=== PATIENT | female | born 1930 | race African-American/Black ===

== ENCOUNTER 2018-09-14 14:09 | Inpatient (IN) | payer OTHER ==
[~2018-09-14] VITALS: Ht 157.5 cm; Wt 91.2 kg
[~2018-09-14 14:09] MED LIST: ALLOPURINOL 10100 M1 PO; APAP500 PO; CLORAZEPATE D3.75 M1 PO; COUMADIN 4 MG TA4 M1 PO; HYDROCODONE-AP1 EAC6 PO; LISINOPRIL10 MG PO; LOPRESSOR50 PO; METFORMIN HCL500 MG PO; NIFEDIPINE ER90 M1 PO; PACERONE 200 M200 M1 PO; POTASSIUM20 PO; PRAVACHOL40 MG PO; ULTRAM 50MG TAB50 MG PO; VITAMIN D 5050000 I1 PO
[2018-09-14 14:18] VITALS: BP 150/86
[2018-09-14 15:11] LABS: ABSOLUTE NEUTROPHILS 4.5 thou/uL (1.4-8.2); BASOPHILS 0.6 % (0.0-2.0); EOSINOPHILS 0.8 % (0.0-3.0); HEMOGLOBIN 12.8 gm/dL (12.0-15.0); LYMPHOCYTES 26.6 % (24.0-44.0); MCH 31.6 pg (26.0-34.0); MCHC 32.8 g/dL (28.0-37.0); MCV 96.5 fL (80.0-100.0); MONOCYTES 7.3 % (1.0-8.0); PLATELET COUNT 355 thou/uL (150-400); POLYS 64.7 % (36.0-66.0); RBC 4.04 mil/uL (4.20-5.00); RDW 15.1 % (10.5-14.5)
[2018-09-14 15:15] LABS: CALCIUM 9.5 mg/dL (8.5-10.1); CREATININE 1.4 mg/dL (0.6-1.0); POTASSIUM 4.4 mmol/L (3.5-5.1)
[2018-09-14 15:25] LABS: ALBUMIN 3.3 g/dL (3.4-5.0); TOTAL BILIRUBIN 0.5 mg/dL (<0.1-1.0); TOTAL PROTEIN 6.9 g/dL (6.4-8.2)
[2018-09-14 15:26] LABS: TROPONIN-I 3.22 ng/mL (<0.06)
[2018-09-14 15:28] LABS: INR 2.8; PROTIME 28.8 Seconds (9.3-11.4)
[2018-09-14 17:46] LABS: CHOLESTEROL 164 mg/dL (<200); HDL CHOLESTEROL 77 mg/dL (>40); LDL CHOLESTEROL 61 mg/dL (<100); TC:HDL 2.1 Ratio (Not establshd); TRIGLYCERIDE 134 mg/dL (<150); VLDL 27 mg/dL (<40)
[2018-09-14 17:58] VITALS: BP 147/90
[2018-09-14 18:00] VITALS: BP 155/91
[2018-09-14 18:01] LABS: HEMATOCRIT 38.9 % (37.0-47.0); HEMOGLOBIN 12.7 gm/dL (12.0-15.0); MCH 31.3 pg (26.0-34.0); MCHC 32.6 g/dL (28.0-37.0); MCV 95.9 fL (80.0-100.0); RBC 4.05 mil/uL (4.20-5.00); RDW 15.4 % (10.5-14.5); WBC 7.9 thou/uL (4.0-11.0)
[2018-09-14 18:45] VITALS: BP 133/68
[2018-09-14] MEDS ORDERED: LASIX 20 MG TAB20 MG PO (23:22)
[2018-09-15 00:22] VITALS: BP 136/84
[2018-09-15 03:29] LABS: HEMATOCRIT 37.1 % (37.0-47.0); HEMOGLOBIN 11.9 gm/dL (12.0-15.0); MCH 30.6 pg (26.0-34.0); MCV 95.7 fL (80.0-100.0); RBC 3.88 mil/uL (4.20-5.00); RDW 14.8 % (10.5-14.5); WBC 8.4 thou/uL (4.0-11.0)
[2018-09-15 03:44] LABS: CREATININE 1.6 mg/dL (0.6-1.0); POTASSIUM 4.3 mmol/L (3.5-5.1)
[2018-09-15 03:48] LABS: INR 2.2; PROTIME 22.7 Seconds (9.3-11.4)
[2018-09-15 03:53] LABS: APTT 123.5 Seconds (24.5-32.8)
[2018-09-15 03:54] LABS: TROPONIN-I 3.11 ng/mL (<0.06)
--- NOTE | 2018-09-15 05:09 | NUR ---
PT ADMITTED A T CHANGE OF SHIFT 09/14/18 1900. ALERT AND ORIENTED. ON HEPARIN DRIP WITHOUT ACTIVE CHEST PAIN. ELEVATED TROPONIN. VITALS STABLE. FIRST APTT WAS CRITICAL GREATER 198.4. HELD HEPARIN FOR 1 HOUR , REDUCED RATE BY 2.7ML/HR AND RECHECK APTT 6HRS LATER. 0350, NEW APTT 123.5. APTT HELD FOR 1 HOUR AND RATE REDUCED BY 2.7 ML/HR. CURRENT HEPARIN RATE 5.37 ML/HR. PT WAS C/O NAUSEA EARLIER DURING THE SHIFT. ALLEVIATED BY ZOFRAN IV. AT 0138 Pt WAS HELPED TO BEDSIDE COMMODE AND WAS SOB AND ONSET OF CHEST PAIN, OVER LEFT SIDE, UNDER THE BREAST RATED AT 10/10.BREAD ROOM HAND NOTIFIED. NITRO X 1 SUBLINGUAL AND MORPHINE GIVEN. PAIN ALLEVIATED. PATIENT CURRENTLY WITHOUT PAIN. Pt HAS BEEN NPO SINCE 0000 FOR PENDING CARDIAC CATH. CONSENT FOR OBTAINED. WILL CONTINUE TO FOLLOW POC.
[2018-09-15 05:25] VITALS: BP 113/60
[2018-09-15 08:39] VITALS: BP 120/72
--- NOTE | 2018-09-15 09:22 | 2DMMODE ---
[place] [address] [employer] [place] [address] 2 D/M-MODE ECHOCARDIOGRAM Name: LENY BLANCO Room #: 211-P [facility] IN ..#: [id number] ������������� Admission: 09/14/18 ������������� Attend Phys: Brooke Hall MD Discharge: ��� ������������� ��� Date of : 32 Date of Service: 09/15/18 0922 �� Report #: [id number] �������� ��������������������������������������������[id number] THIS REPORT FOR: //name// APPROVED REPORT Study performed: 09/15/2018 08:26:25 EXAM: Comprehensive 2D, Doppler, and color-flow Echocardiogram Patient Location: Bedside Room #: 211 Status: routine BSA: 1.90 HR: 110 bpm BP: 120/72 mmHg Rhythm: Atrial Fibrillation Indications Elevated troponin, NSTEMI, short of breath, chest pain. Hx: Afib, CHF, DM, HTN, HLP. Echo Enhancing Agent Indication: Rule out thrombus Agent(s) / Amount(s) Used: Optison 9 cc 2D Dimensions RVDd: 35.58 mm IVSd: 11.28 (7-11mm) LVOT Diam: 19.84 (18-24mm) LVDd: 39.02 mm PWd: 10.56 (7-11mm) Ascending Ao: 29.17 (22-36mm) LVDs: 29.54 (25-40mm) Aortic Root: 31.21 mm Volumes Left Atrial Volume (Systole) Single Plane 4CH: 66.10 mL Single Plane 2CH: 82.66 mL LA ESV Index: 44.00 mL/m2 Aortic Valve AoV Peak Chester.: 1.07 m/s AO Peak Gr.: 4.56 mmHg LVOT Max P.44 mmHg LVOT Max V: 1.17 m/s ARYAN Vmax: 3.37 cm2 Mitral Valve MV Decel. Time: 112.93 ms [facility] [place] [address] 2 D/M-MODE ECHOCARDIOGRAM Name: LENY BLANCO Room #: 211-P [facility] IN M.R.#: [id number] ������������� Admission: 09/14/18 ������������� Attend Phys: Brooke Hall MD Discharge: ��� ������������� ��� Date of : 31 Date of Service: 09/15/18 0922 �� Report #: [id number] �������� ��������������������������������������������[id number] MV E Max Chester.: 0.88 m/s Pulmonary Valve PV Peak Chester.: 0.77 m/s PV Peak Gr.: 2.36 mmHg Tricuspid Valve TR Peak Chester.: 3.55 m/s RAP Estimate: 10.00 mmHg TR Peak Gr.: 50.28 mmHg PA Pressure: 60.00 mmHg Left Ventricle The left ventricle is normal size. Moderate basal septal hypertrophy is present. Left ventricular systolic function is severely decreased. LVEF is 25%. Akinesis of septum, anterolateral wall and apex. This study is not technically sufficient to allow evaluation of the LV diastolic function. Right Ventricle The right ventricle is normal size. Right ventricle is hypokinetic. Atria Left atrium is moderately dilated. The atrial septum is aneurysmal. The right atrium size is normal. Aortic Valve The aortic valve is mildly sclerotic. Trace aortic regurgitation. There is no aortic valvular stenosis. Mitral Valve The mitral valve is normal in structure. Mild mitral regurgitation. No evidence of mitral valve stenosis. Tricuspid Valve The tricuspid valve is normal in structure. Moderate tricuspid regurgitation. Estimated PAP is 60mmHg. Pulmonic Valve The pulmonary valve is normal in structure. Trace pulmonic regurgitation. Great Vessels The aortic root is normal in size. The ascending aorta is normal in size. IVC is normal in size and collapses <50% with inspiration. [facility] [address] [place] [address] 2 D/M-MODE ECHOCARDIOGRAM Name: LENY BLANCO Room #: 211-P [facility] IN .R.#: [id number] ������������� Admission: 09/14/18 ������������� Attend Phys: Brooke Hall MD Discharge: ��� ������������� ��� Date of : 31 Date of Service: 09/15/18 0922 �� Report #: [id number] �������� ��������������������������������������������[id number] Pericardium There is no pericardial effusion. <Conclusion> Left ventricular systolic function is severely decreased. LVEF is 25%. Akinesis of septum, anterolateral wall and apex. Left atrium is moderately dilated. The aortic valve is mildly sclerotic. Trace aortic regurgitation, no stenosis. The mitral valve is normal in structure. Mild mitral regurgitation. Moderate tricuspid regurgitation. Estimated pulmonary artery pressure of 60mmHg. There is no pericardial effusion. ��������������������������������������������� <ELECTRONICALLY SIGNED> ���������������������������������������� By: Bhavin Browning MD, [facility] ��������������������������������������������� 09/15/18921 1 1 Bhavin Browning MD, [facility] /INF
[2018-09-15 12:46] LABS: INR 1.7
[2018-09-15 13:19] VITALS: BP 143/78
--- NOTE | 2018-09-15 16:02 | EKG ---
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: W[place] : 1930 Requested By: Tesfaye Allen Order Number: [id number] MD: Bhavin Browning Measurements Intervals [place] Rate: 79 P: 43 HI: 263 QRS: -1 QRSD: 150 T: 148 QT: 462 QTc: 530 Interpretive Statements Sinus rhythm Prolonged HI interval Left bundle branch block Compared to ECG 01/16/2015 21:19:28 No significant changes Electronically Signed On 09-15-2018 16:02:40 CDT by Bhavin Browning [email or web address] ��������������������������������������������� <ELECTRONICALLY SIGNED> ���������������������������������������� By: Bhavin Browning MD, [facility] ��������������������������������������������� 09/15/18 1602 1434 1434 Bhavin Browning MD, [facility] /EPI
--- NOTE | 2018-09-15 16:19 | CATHLAB ---
[facility] [place] [address] INVASIVE PROCEDURE REPORT Name: BELLALENY B Room #: 211-P [facility] IN [facility]#: [id number] ������������� Admission: 09/14/18 ������������� Attend Phys: Brooke Hall MD Discharge: ��� ������������� ��� Date of : 31 Date of Service: 09/15/18 1619 �� Report #: [id number] �������� ��������������������������������������������[id number] THIS REPORT FOR: //name// APPROVED REPORT Study performed: 09/15/2018 13:51:01 Patient Details The patient is a 88 year-old female Event Personnel Tj Esparza Account [employer], Mary Ramos RN RN, Jasmina Lopez RN RN, Haleigh Moore, Monica Dale Monitor Procedures Performed Left Heart Cath w/or w/o Coronaries [id number] [facility] Indication Dyspnea, Cardiomyopathy, Chest pain Risk Factors Hypercholesterolemia, Coronary Artery DiseaseHypertension Procedure Narrative The Right Wrist^ was infiltrated with 1% Lidocaine subcutaneous anesthesia. A TRANSRADIAL SLENDER 6F GLIDESHEATH KIT #[id number] sheath was inserted into the Right Radial Artery^. Coronary angiography was performed using coronary diagnostic catheters. The right coronary system was accessed and visualized with a 5FR JR 4 #[id number] catheter. The left coronary system was accessed and visualized with a 5FR JL 3.5 #[id number] catheter. The left ventricle was accessed and visualized with a 5FR PIG 145 ANGLED #[id number] catheter. Hemostasis was obtained with manual pressure following sheath removal without any complications. The patient tolerated the procedure well and there were no complications associated with the procedure. There was no hematoma. Intraoperative Conscious Sedation Sedation start time: 1411 Case end Time: 1430 Fluoro Time: 3.10 minutes Dose: DAP 5269.00 cGycm2 602 mGy Contrast Type and Amount: Visipaque 50 ml [facility] [place] [address] INVASIVE PROCEDURE REPORT Name: LENY BLANCO Room #: 211-P [facility] IN .R.#: [id number] ������������� Admission: 09/14/18 ������������� Attend Phys: Brooke Hall MD Discharge: ��� ������������� ��� Date of : 31 Date of Service: 09/15/18 1619 �� Report #: [id number] �������� ��������������������������������������������[id number] Coronary Angiography The patient's coronary anatomy is right dominant. Diagnostic Cath Left Main This is a large caliber vessel, patent with no flow-limiting lesions. LAD This is a moderate size caliber vessel, traversing the anterior wall and terminating at the apex. There is mild stenosis in the proximal segment, 20%. Diagonal 1 There is a small-caliber vessel, patent with no flow-limiting lesions. Diagonal 2 This is a moderate size caliber vessel, originating from the mid segment of the LAD. This vessel travels down the anterolateral wall and wraps around the apex. This vessel is patent with no flow-limiting lesions. Circumflex This is a moderate size caliber vessel, supplying multiple OM vessels. This vessel is tortuous in its course, patent with no flow-limiting lesions. OM1 There is mild disease in the proximal segment, 20%. OM2 This is a moderate size caliber vessel, patent with no flow-limiting lesions. OM3 This is a patent vessel, with no flow-limiting lesions. Right Coronary This is a dominant vessel, with mild disease in the proximal segment, 10%. R PDA This is a patent vessel, with no flow-limiting lesions. RPLV This is a patent vessel, with no flow-limiting lesions. Left Ventriculography Left Ventriculography was not performed. Ejection Fraction was 25-30% based off patient's Echocardiogram. An LVEDP was measured and there is no gradient across the outflow tract. Hemodynamics The aortic pressure is 134/89 mmHg with a mean of 109 mmHg. The left ventricular pressure is 144/29 mmHg with a mean of mmHg. The left ventricular end diastolic pressure is 32 mmHg. Conclusion 1. Mild, nonobstructive coronary artery disease. 2. 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 3. Recommend guideline directed medical therapy. ��������������������������������������������� <ELECTRONICALLY SIGNED> ���������������������������������������� By: Tj Esparza MD ��������������������������������������������� 09/15/181618 18 18 Tj Esparza MD /INF
--- NOTE | 2018-09-15 16:50 | NUR ---
ASSESSMENT CHARTED - MEDS PER JUN - GIVEN VIT K SUB Q THIS AM - ORDERED TO LOWER INR. SAT CHECKED WITH PATIENT ASLEEP ON - WAS IN THE LOW 80'S. PLACED ON AT 2 L NC - IS NOW AT 3. 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 PT GIVEN SANDWICH WHEN SHE RETRUNED FROM CATH - STATED SHE WAS HUNGRY - TOOK A FEW BITES AND THEN SAID SHE WS NOT AND WANTED ZOFRAN. VSS POST CATH - NO CO'S OF PAIN, RESTING AT THE PRESENT TIME.
[2018-09-15 20:00] VITALS: BP 124/64
--- NOTE | 2018-09-16 04:58 | NUR ---
Pt had a cardiac cath, without intervention yesterday. Pt was lethargic and confused at the beginning of the shift but later was awake was oriented x 4. voids per bedside commode . vital signs stable and assessments as documented. will keep monitoring lethergyand following POC.
[2018-09-16 05:00] VITALS: BP 118/61
[2018-09-16 05:08] LABS: HEMATOCRIT 37.2 % (37.0-47.0); HEMOGLOBIN 11.9 gm/dL (12.0-15.0); MCH 31.1 pg (26.0-34.0); MCHC 31.9 g/dL (28.0-37.0); MCV 97.6 fL (80.0-100.0); RBC 3.81 mil/uL (4.20-5.00); RDW 15.3 % (10.5-14.5); WBC 10.9 thou/uL (4.0-11.0)
[2018-09-16 05:19] LABS: INR 1.3; PROTIME 13.4 Seconds (9.3-11.4)
[2018-09-16 05:36] LABS: CALCIUM 9.1 mg/dL (8.5-10.1); CREATININE 2.2 mg/dL (0.6-1.0); POTASSIUM 4.2 mmol/L (3.5-5.1)
[2018-09-16 05:38] LABS: TROPONIN-I 1.75 ng/mL (<0.06)
[2018-09-16 07:24] VITALS: BP 150/88
[2018-09-16 11:32] VITALS: BP 123/62
[2018-09-16 15:32] LABS: URINE BLOOD 2+ (Negative); URINE COLOR YELLOW; URINE GLUCOSE-RANDOM* NEGATIVE (Negative); URINE KETONES NEGATIVE (Negative); URINE LEUKOCYTES NEGATIVE (Negative); URINE NITRITE NEGATIVE (Negative); URINE PROTEIN (DIPSTICK) 1+ (Negative); URINE UROBILINOGEN 0.2 E.U./dl (0.2-1.0)
[2018-09-16 15:35] LABS: ICTOTEST (BILI CONFIRMATORY) Negative (Negative); URINE BILIRUBIN NEGATIVE (Negative)
[2018-09-16 15:36] LABS: URINE CLARITY SL HAZY
[2018-09-16 15:38] LABS: PROT/CREAT RATIO 0.2; URINE CREATININE-RANDOM* 284.4 mg/dL; URINE PROTEIN-RANDOM* 66.8 mg/dL (<11.9)
[2018-09-16 15:42] LABS: SQUAMOUS 4-10 Moderate /LPF (0-3); URINE RBC 0-2 Rare /HPF (0-2); URINE WBC 0-5 Rare /HPF (0-5)
[2018-09-16 15:44] LABS: CASTS None Seen /LPF (None Seen); CRYSTALS None Seen /LPF (None Seen)
[2018-09-16 16:16] VITALS: BP 126/74
--- NOTE | 2018-09-16 17:07 | NUR ---
ASSESSMENTS CHARTED - MEDS PER MAR - LISINOPRIL D/C'S TODAY AND PATIENT STARTED ON AMMIODARONE. IV FLUIDS STARTED ORDERED - CONSULT FOR DR HICKMAN AND PATIENT SEEN - ORDERS NOTED - URINE SENT TO LAB. PT UP TO THE CHAIR THIS AFTERNOON - JASON WELL. NO CO'S OF PAIN OR NAUSEA.JASON OD AMPUNT OF DIET AND FLUIDS. FAMILY AT THE BEDSIDE FOR THE DAY. PT APPEARED A LITTLE CONFUSED THIS AM WHEN FIRST AWOKEN - CLEARED AND SHE HAS BEEN ALERT AND ORIENTED THE REST OF THE DAY. TITRATING O2 OFF AND PATIENT STATED THAT SHE WANTED BACK ON SHE FELT BETTER WITH IT ON AND BREATHING WAS EASIER - LEFT O2 AT 2 LNC. NO CO'S AT THE PRESENT TIME.
[2018-09-16 20:42] VITALS: BP 122/63
[2018-09-17] VITALS (7 sets, daily range): BP systolic 101–142; BP diastolic 45–79
--- NOTE | 2018-09-17 04:41 | NUR ---
Assumed care at 1900. pt alert and oriented. Family at bedside. VSS. Pt denies pain,or nausea . on 2L eof oxygen. Pt received a bed bath. No other complains reported. Turns as needed. ANd denies SOA. Will continue with plan of care.
[2018-09-17 05:26] LABS: PROTIME 10.8 Seconds (9.3-11.4)
[2018-09-17 05:30] LABS: CALCIUM 8.4 mg/dL (8.5-10.1); CREATININE 1.6 mg/dL (0.6-1.0); POTASSIUM 3.9 mmol/L (3.5-5.1)
--- NOTE | 2018-09-17 09:30 | EKG ---
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 : 1930 Requested By: Bhavin Browning Order Number: [id number] MD: Bhavin Browning Measurements Intervals [place] Rate: 98 P: 0 AZ: 209 QRS: 23 QRSD: 134 T: 145 QT: 396 QTc: 506 Interpretive Statements Sinus tachycardia Atrial premature complexes Borderline prolonged [place] interval Left bundle branch block Compared to ECG 09/14/2018 14:34:19 Atrial premature complex(es) now present Electronically Signed On 09-17-2018 9:30:33 CDT by Bhavin Browning [email or web address] ��������������������������������������������� <ELECTRONICALLY SIGNED> ���������������������������������������� By: Bhavin Browning MD, [facility] ��������������������������������������������� 09/17/1830 2 2 Bhavin Browning MD, [facility] /EPI
--- NOTE | 2018-09-17 16:44 | NUR ---
ASSESSMENT CHARTED - MEDS PER JUN - STARTED ON LISINOPRIL THIS AM AND IV ANTIBIOTIC. PT AND OT CONSULTED - PT UP TO THE CHAIR AND TO THE BSC - BETTER URING OUTPUT TODAY - URINE REMAINS DONIS IN COLOR. JASON DIET AND FLUIDS WITH NO CO'S OF NASUEA. NO CO'S OF PAIN. PT WITH MANY VISITIORS TODY - BRIGHT AND CONVERSANT WITH THEM. PT STATES THAT SHE FEELS BETTER TODAY. NO CO'S AT THE PRESENT TIME.
--- NOTE | 2018-09-18 03:19 | NUR ---
ASSESSMENT CHARTED. PT DENIES CP, SOA, N/V, DIZINESS. 2 L NC. X1 ASSIST TO COMMOD TO VOID. FAMILY AT BEDSIDE THROUGHOUT NIGHT. SLEEPING WELL. PLAN FOR LABS THIS AM. WILL CONTINUE TO MONITOR AND WITH POC.
[2018-09-18 03:59] LABS: ALBUMIN 2.2 g/dL (3.4-5.0); CALCIUM 8.3 mg/dL (8.5-10.1); CREATININE 1.7 mg/dL (0.6-1.0); PHOSPHORUS 3.4 mg/dL (2.5-4.9); POTASSIUM 3.9 mmol/L (3.5-5.1)
[2018-09-18 04:00] LABS: PROTIME 10.7 Seconds (9.3-11.4)
[2018-09-18 04:50] VITALS: BP 142/76
--- NOTE | 2018-09-18 07:55 | HC ---
[facility] [place] [address] CONSULTATION Name: LENY BLANCO Delilah Room #: 211-P [facility] IN M.R.#: [id number] Admission: 09/14/18 ������������������ Attend Phys: Brooke Hall MD Discharge: ������������������ Date of : 31 Report #: [id number] THIS REPORT FOR: //name// CC: Kyra Hall DATE OF SERVICE: 09/14/2018 INDICATION: Chest pain. HISTORY OF PRESENT ILLNESS: This is a pleasant 88-year-old female with a past medical history significant for paroxysmal atrial fibrillation, diabetes mellitus, hypertension, mild coronary artery disease, presenting with chest pain. Yesterday, she started to develop a discomfort in the left lower chest area, initiated with exertion. Anytime she walked, she felt chest discomfort, relieved at rest. She felt mildly lightheaded this morning. She denies any fever, nausea or diarrhea. She does have intermittent episodes of dyspnea. Her ambulation is limited by arthritis, normally uses a cane for assistance. She reports no recent falls. She is chronically anticoagulated with warfarin. PAST MEDICAL HISTORY: Mild CAD, paroxysmal atrial fibrillation, maintained in sinus rhythm with amiodarone. Diabetes mellitus, hypertension. Echo from 2018 reveals normal EF with mild to moderate mitral regurgitation. History of SVT. MEDICATIONS: At home include amiodarone 200 mg daily, Lopressor 50 mg, metformin, warfarin as directed, lisinopril 40 mg, nifedipine, Pravachol and Lasix. ALLERGIES: INCLUDE ZOCOR AND OXYCODONE. SOCIAL HISTORY: Negative for tobacco use. FAMILY HISTORY: Negative for premature CAD. REVIEW OF SYSTEMS: A full 10-point review of systems performed. Only the pertinent positives and negatives are described in the HPI. PHYSICAL EXAMINATION: VITAL SIGNS: Blood pressure is 140/90, heart rate is 85 beats per minute. GENERAL APPEARANCE: An elderly appearing female in no acute distress. HEENT: Normocephalic, atraumatic. Oral mucosa moist. NECK: Supple. LUNGS: Clear to auscultation. CARDIAC: Regular rate and rhythm, S1, S2 positive. ABDOMEN: Soft, nontender. EXTREMITIES: No cyanosis, trace edema. [facility] [address] [place] [address] CONSULTATION Name: LENY BLANCO Room #: 211-P [facility] IN .R.#: [id number] Admission: 09/14/18 ������������������ Attend Phys: Brooke Hall MD Discharge: ������������������ Date of : 31 Report #: [id number] ELECTROCARDIOGRAM: Reveals sinus rhythm, left bundle-branch block. LABORATORY VALUES: White count 7.0, hemoglobin is 12.8. INR is 2.8. Creatinine is 1.4. Troponin is 3.22. ASSESSMENT AND PLAN: 1. Non-ST elevation myocardial infarction, pain free at this time. Minimal exertion will elicit her anginal episodes. Given her symptoms and risk factors, I did recommend proceeding with a cardiac catheterization. We discussed the risks and benefits. The patient and her family understand and wish to proceed. We will start the patient on heparin protocol at this time. Start aspirin therapy. 2. Paroxysmal atrial fibrillation, remains in sinus rhythm. Continue with amiodarone. Warfarin will be held. She will be given vitamin K to reverse the INR. 3. Hypertension, continue with medications. 4. Diabetes mellitus, continue with her regimen. 5. Hypercholesterolemia, continue with statin therapy. 6. Edema, hold diuretic therapy at this time. ��������������������������������������������� <ELECTRONICALLY SIGNED> ���������������������������������������� By: Tj Esparza MD ��������������������������������������������� 09/18/18 0755 1643 1227 Tj Esparza MD /nt
[2018-09-18 08:51] VITALS: BP 120/54
--- NOTE | 2018-09-18 10:36 | NUR ---
Met with patient who reports she lives at home with dtr and granddtr. She reports someone with her most of time. All needs on one level. She uses a rolator walker for ambulation. She reports she is open to HH if needed at vt. casemgt following.
[2018-09-18 11:04] VITALS: BP 100/50
--- NOTE | 2018-09-18 11:28 | HC ---
[facility] [place] [address] [place] [address] CONSULTATION Name: LENY BLANCO Delilah Room #: 211-P [facility] IN M.R.#: [id number] Admission: 09/14/18 ������������������ Attend Phys: Brooke Hall MD Discharge: ������������������ Date of : 31 Report #: [id number] THIS REPORT FOR: //name// CC: Kyra Hall DATE OF SERVICE: 09/16/2018 NEPHROLOGY CONSULTATION REASON FOR CONSULTATION: Elevating creatinine. HISTORY OF PRESENT ILLNESS: This 88-year-old patient with chronic atrial fibrillation, decreased heart function, long-standing diabetes and hypertension, presented with left-sided pleuritic pain. Troponin I was mildly elevated and she underwent heart catheterization, which showed no substantial coronary artery disease. She does have a decreased left ventricular ejection fraction of 25%. Creatinine was 1.4 at the time of admission and gradually elevating and now up to 2.2 today. PAST MEDICAL HISTORY: Long-standing diabetes, long-standing hypertension, chronic atrial fibrillation, diabetes and hypertension. HOME MEDICATIONS: Include amiodarone 200 mg per day, metoprolol 50 mg daily, metformin, warfarin, lisinopril 10 mg daily, nifedipine 30 mg daily, Pravachol and every other day furosemide. ALLERGIES: REPORTEDLY TO ZOCOR. FAMILY HISTORY: Negative for renal disease. SOCIAL HISTORY: Remote smoker. REVIEW OF SYSTEMS: GENERAL: She has been feeling reasonably well. EYES: Vision okay. She does have a cataract. ENT: Hearing okay, swallows okay. No mouth sores. ENDOCRINE: Positive for the diabetes. RESPIRATORY: Denies shortness of air or hemoptysis. She did have pleuritic pain at admission. CARDIAC: Denies anginal-type chest pain, lower extremity swelling or palpitations. GASTROINTESTINAL: No nausea, vomiting, diarrhea or bloody stools. GENITOURINARY: No dysuria, hematuria or renal stone disease. NEUROLOGIC: No seizure, syncope or stroke. No evidence of peripheral neuropathy. [facility] [address] [address] CONSULTATION Name: LENY BLANCO Room #: [address] [place] [address] [place] [facility].#: [id number] Admission: 09/14/18 ������������������ Attend Phys: Brooke Hall MD Discharge: ������������������ Date of : 31 Report #: [id number] MUSCULOSKELETAL: Benign. PHYSICAL EXAMINATION: VITAL SIGNS: This is an elderly patient, relatively comfortable. SKIN: Unremarkable. SKELETAL: Well developed, well nourished. No amputations. HEENT: Extraocular movements are full. No scleral icterus. Hearing and vision intact. Mucous membranes moist. Tongue, buccal mucosa benign. NECK: Supple. No carotid bruits. CHEST: Scanty bibasilar crackles. HEART: Irregular. ABDOMEN: Soft and nontender, without bruits, masses or organomegaly. EXTREMITIES: Show no peripheral edema. NEUROLOGIC: Grossly intact. LABORATORY DATA: Hemoglobin 11.9. Sodium 140, potassium 4.2, chloride 105, bicarbonate 23, BUN 42 and creatinine 2.2. ASSESSMENT AND PLAN: 1. Acute kidney injury. She appears to have dye-induced acute kidney injury. Her cardiac performance has fallen really for unclear etiology. She did have a mildly elevated troponin, but no coronary lesions. Appropriately, gentle IV fluids are being given. For completeness, we will check urinalysis, urine proteins, serum protein electrophoresis and renal sonography, but we do not expect really to find much with any of that. 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 2. Decreased left ventricular ejection fraction. 3. Elevated troponin. 4. Long-standing hypertension. 5. Chronic atrial fibrillation. ��������������������������������������������� <ELECTRONICALLY SIGNED> ���������������������������������������� By: Luis Khan MD ��������������������������������������������� 09/18/18 1128 1010 0012 Luis Khan MD /nt
[2018-09-18] MEDS ORDERED: LISINOPRIL2.5 MG PO (12:05)
[2018-09-18] MEDS ORDERED: CEFUROXIME250 MG PO (12:05)
[2018-09-18] MEDS ORDERED: COREG6.25 MG PO (12:05)
[2018-09-18] MEDS ORDERED: COUMADIN 5 MG TA5 M1 PO (12:05)
[2018-09-18] MEDS ORDERED: ASPIR 8181 MG PO (12:05)
[2018-09-18] MEDS ORDERED: SYNTHROID25 MC1 PO (12:05)
[2018-09-18 13:43] VITALS: BP 100/50
--- NOTE | 2018-09-18 13:45 | NUR ---
NOTIFIED [facility] OF REFERRAL AND THEY CAN ACCEPT AT [place]. PT DISCHARGING TODAY TO HOME WITH [facility] HH SPOKE WITH TANNA IN ADM. SHE WILL NOTIFY [facility] SIM OF TIME OF VISITS.
--- NOTE | 2018-09-18 14:04 | NUR ---
discussed with granddtr dc planning. Patient to dc home today with HH care. No preference for HH, [facility] can accept. gave granddtr Div of Aging information to call if patient candidate for HBCS.
--- NOTE | 2018-09-18 18:08 | NUR ---
ASSESSMENT CHARTED, VSS, ALERT AND ORIENTED, PATIENT DISCHARGED TO HOME ACCOMPANIED BY CAREGIVER, GRANDDAUGHTER. DISCHARGE INSTRUCTIONS GIVEN TO PATIENT AND GRANDDAUGHTER, BOTH STATED UNDERSTANDING. RACIEL KAUFFMAN.
[2018-09-19 14:09] LABS: KAPPA/LAMBDA RATIO 17.23 (0.26-1.65); LAMBDA FREE LIGHT CHAINS 17.3 mg/L (5.7-26.3)
[2018-09-20 19:06] LABS: GLOBULIN TOTAL 2.7 g/dL (2.2-3.9); M-SPIKE Not Observed g/dL (Not Observed)
== END 2018-09-18 18:23 | disposition home health service (06) | DRG 280 ==
LOC: ER 14:09 → 2N 16:28 → EROBS 16:28 → 2N 18:25 → ENTRNSPT 09-18 17:12 → 2N 09-18 18:23
PROVIDERS: Emergency Medicine; Internal Medicine; Internal Medicine Nephrology; ADMIT Internal Medicine
DX: I21.4 Non-ST elevation (NSTEMI) myocardial infarction (principal); I50.23 Acute on chronic systolic (congestive) heart failure; N17.9 Acute kidney failure, unspecified; I51.81 Takotsubo syndrome; I13.0 Hypertensive heart and chronic kidney disease with heart failure and stage 1 through stage 4 chronic kidney disease, or unspecified chronic kidney disease; N39.0 Urinary tract infection, site not specified; N18.4 Chronic kidney disease, stage 4 (severe); I48.0 Paroxysmal atrial fibrillation; I25.10 Atherosclerotic heart disease of native coronary artery without angina pectoris; E78.00 Pure hypercholesterolemia, unspecified; E78.5 Hyperlipidemia, unspecified; F41.9 Anxiety disorder, unspecified; I36.1 Nonrheumatic tricuspid (valve) insufficiency; E03.9 Hypothyroidism, unspecified; E11.21 Type 2 diabetes mellitus with diabetic nephropathy; G72.9 Myopathy, unspecified; Z90.710 Acquired absence of both cervix and uterus; Z85.42 Personal history of malignant neoplasm of other parts of uterus; Z90.49 Acquired absence of other specified parts of digestive tract; Z79.899 Other long term (current) drug therapy; Z79.01 Long term (current) use of anticoagulants; Z79.84 Long term (current) use of oral hypoglycemic drugs; Z88.8 Allergy status to other drugs, medicaments and biological substances; Z87.891 Personal history of nicotine dependence
CPT/HCPCS: 10081; 10194

== ENCOUNTER 2018-10-02 23:18 | Inpatient (IN) | payer OTHER ==
[~2018-10-02] VITALS: Ht 157.5 cm; Wt 98.7 kg
[~2018-10-02 23:18] MED LIST changes: +ASPIR 8181 MG PO; +CEFUROXIME250 MG PO; +COREG6.25 MG PO; +COUMADIN 5 MG TA5 M1 PO; +LASIX 20 MG TAB20 MG PO; +LISINOPRIL2.5 MG PO; +SYNTHROID25 MC1 PO
[2018-10-02 23:29] VITALS: BP 143/101
[2018-10-02 23:41] LABS: ABSOLUTE NEUTROPHILS 4.1 thou/uL (1.4-8.2); BASOPHILS 1.2 % (0.0-2.0); EOSINOPHILS 3.3 % (0.0-3.0); HEMATOCRIT 37.9 % (37.0-47.0); HEMOGLOBIN 12.4 gm/dL (12.0-15.0); LYMPHOCYTES 22.6 % (24.0-44.0); MCH 31.4 pg (26.0-34.0); MCHC 32.7 g/dL (28.0-37.0); MCV 95.9 fL (80.0-100.0); MONOCYTES 5.9 % (1.0-8.0); PLATELET COUNT 521 thou/uL (150-400); RBC 3.95 mil/uL (4.20-5.00); RDW 14.9 % (10.5-14.5); WBC 6.2 thou/uL (4.0-11.0)
[2018-10-02 23:50] LABS: CALCIUM 8.9 mg/dL (8.5-10.1); CREATININE 1.5 mg/dL (0.6-1.0); POTASSIUM 4.5 mmol/L (3.5-5.1)
[2018-10-02 23:59] LABS: TROPONIN-I 0.11 ng/mL (<0.06)
[2018-10-03] VITALS (7 sets, daily range): BP systolic 127–167; BP diastolic 59–98
[2018-10-03 00:44] LABS: APTT 35.7 Seconds (24.5-32.8); INR 2.8; PROTIME 28.8 Seconds (9.3-11.4)
[2018-10-03 05:10] LABS: CALCIUM 8.6 mg/dL (8.5-10.1); CREATININE 1.2 mg/dL (0.6-1.0); POTASSIUM 4.4 mmol/L (3.5-5.1)
--- NOTE | 2018-10-03 05:24 | NUR ---
PT WAS AN ER ADMIT AT 0250 WHO CAME INTO THE ER WITH AN IRREGULAR HEAR RHYTHM. FAMILY AT BEDSIDE. PT IS ALERT AND ORIENTED AND DENIES ANY NEED. PT IS PLACED ON AMIODARON DRIP. PT IS SEEN BY NURSE PRACTITIONER. ADMISSION ASSESSMENT AND EDUCATION COMPLETED. NO SIGN OF DISTRESS NOTED. VITAL SIGNS STABLE. DENIES ANY FURTHER NEEDS AT THIS TIME.
[2018-10-03 09:09] LABS: CREATININE 1.4 mg/dL (0.6-1.0); POTASSIUM 4.4 mmol/L (3.5-5.1)
[2018-10-03 09:12] LABS: INR 3.3; PROTIME 34.1 Seconds (9.3-11.4)
--- NOTE | 2018-10-03 15:21 | 2DMMODE ---
[address] [address] 2 D/M-MODE ECHOCARDIOGRAM Name: LENY BLANCO Room #: 210-P ADM IN M.R.#: [id number] ������������� Admission: 10/03/18 ������������� Attend Phys: Zachary Benson MD Discharge: ��� ������������� ��� Date of : 32 Date of Service: 10/03/18 1521 �� Report #: [id number] �������� ��������������������������������������������[id number] THIS REPORT FOR: //name// APPROVED REPORT Study performed: 10/03/2018 14:11:34 EXAM: Comprehensive 2D, Doppler, and color-flow Echocardiogram Patient Location: Bedside Room #: 210 Status: routine BSA: 1.90 HR: 58 bpm BP: 148/77 mmHg Rhythm: NSR Other Information Study Quality: Good Indications Atrial Fibrillation Takotsubo Left Ventricle The left ventricle is normal size. There is hypokinesis in the apical wall balooning There is normal left ventricular wall thickness. Left ventricular ejection fraction is severely decreased. LVEF is 30%. Right Ventricle The right ventricle is normal size. The right ventricular systolic function is normal. Atria Left atrium is dilated. The right atrium size is normal. Aortic Valve The aortic valve is normal in structure. Mitral Valve The mitral valve is normal in structure. Tricuspid Valve The tricuspid valve is normal in structure. [address] [address] 2 D/M-MODE ECHOCARDIOGRAM Name: LENY BLANCO Room #: 210-P ADM IN M.R.#: [id number] ������������� Admission: 10/03/18 ������������� Attend Phys: Zachary Benson MD Discharge: ��� ������������� ��� Date of : 31 Date of Service: 10/03/18 1521 �� Report #: [id number] �������� ��������������������������������������������[id number] [place] The aortic root is normal in size. Pericardium Trace pericardial effusion. <Conclusion> The left ventricle is normal size. There is hypokinesis in the apical wall balooning Left ventricular ejection fraction is severely decreased. LVEF is 30%. The right ventricle is normal size. Left atrium is dilated. The aortic valve is normal in structure. The mitral valve is normal in structure. ��������������������������������������������� <ELECTRONICALLY SIGNED> ���������������������������������������� By: Luis Kang MD, FACC ��������������������������������������������� 10/03/18 152 20 20 Luis Kang MD, FACC /INF
--- NOTE | 2018-10-03 16:49 | NUR ---
ASSESSMENT CHARTED - PT EXTREMELY SHORT OF BREATH THIS AM - GIVEN LASIX ORDERED AND ANGELO CATH INSERTED AND PATIENT DIURESED 800CC - LESS SHORT OF BREATH - LUNGS NOW WITH SOME CRACLES AND WHEZZES - WHERE EXTREMELY COARSE THIS AM. PT MUCH MORE COMFORTABLE AT THE PRESENT TIME. WAS VERY ANXIOUS THIS AM - CALM AT PRESENT. JASON DIET AND FLUIDS. NO CO'S OF PAIN OR NAUSEA. DID GET UP TO THE BSC X 1 WITH ASSIST. ECHO AND RENAL SONOGRAM COMPLETED. NOW ON RESP TREATMENT. FAMILY AT THE BEDSIDE. ACCUCHECKS CHARTED - NO COVERAGE REQUIRE, NO CO'S AT THE PRESENT TIME.
[2018-10-04 00:15] VITALS: BP 125/87
[2018-10-04 03:20] LABS: CALCIUM 8.3 mg/dL (8.5-10.1); CREATININE 1.4 mg/dL (0.6-1.0); POTASSIUM 3.9 mmol/L (3.5-5.1)
[2018-10-04 03:23] LABS: PROTIME 49.8 Seconds (9.3-11.4)
[2018-10-04 03:28] LABS: INR 4.8
[2018-10-04 04:00] VITALS: BP 130/63
--- NOTE | 2018-10-04 05:35 | NUR ---
ASSUMED PT CARE AT 1900 WITH NO SIGN OF DISTRESS NOTED IN PT. PT IS ALERT AND ORIENTED AND FAMILY MEMBERS AT BEDSIDE. ASSESSMENT CHARTED AND COMPLETED. VITAL SIGNS STABLE. SCHEDULED MEDS ADMINISTERED TO PT. PT HAS ANGELO. DENIES ANY FURTHER NEEDS AT THIS TIME.
[2018-10-04 07:34] VITALS: BP 145/56
--- NOTE | 2018-10-04 07:44 | EKG ---
[address] [place] [address] ELECTROCARDIOGRAM REPORT Name: LENY BLANCO Room #: 210-P ADM IN M.R.#: [id number] ������������������ Admission: 10/03/18 ������������������ Attend Phys: Zachary Benson MD Discharge: ������������������ Date of : 31 Report #: [id number] ����������������������������������������������������������������� [id number] THIS REPORT FOR: //name// [facility] ED Test Date: 2018-10-02 Test Time: 23:28:08 Pat Name: LENY BLANCO Department: Room: 210 Gender: F Various Exceptionalities Teacher: monica saalzar : 1930 Requested By: Tesfaye Allen Order Number: [id number] MD: Bhavin Browning Measurements Intervals [place] Rate: 100 P: 91 [place]: 158 QRS: 58 QRSD: 120 T: 216 QT: 431 QTc: 556 Interpretive Statements Sinus tachycardia Left bundle branch block Compared to ECG 09/17/2018 08:23:34 Atrial premature complexes are no longer present Electronically Signed On 10-04-2018 7:44:45 CDT by Bhavin Browning [email or web address] ��������������������������������������������� <ELECTRONICALLY SIGNED> ���������������������������������������� By: Bhavin Browning MD, [facility] ��������������������������������������������� 10/04/18 0744 27 Bhavin Browning MD, [facility] /EPI
--- NOTE | 2018-10-04 07:51 | EKG ---
[address] [address] ELECTROCARDIOGRAM REPORT Name: LENY BLANCO Room #: 210-P ADM IN M.R.#: [id number] ������������������ Admission: 10/03/18 ������������������ Attend Phys: Zachary Benson MD Discharge: ������������������ Date of : 31 Report #: [id number] ����������������������������������������������������������������� [id number] THIS REPORT FOR: //name// [facility] ED Test Date: 2018-10-03 Test Time: 00:25:33 Pat Name: LENY BLANCO Department: Room: 210 P Gender: F Community Health Educator: SILVIO : 1930 Requested By: Mary Villa Order Number: [id number] MD: Bhavin Browning Measurements Intervals [place] Rate: 103 P: 239 [place]: 162 QRS: 54 QRSD: 123 T: 200 QT: 400 QTc: 524 Interpretive Statements Ectopic atrial or sinus tachycardia Left bundle branch block Compared to ECG 09/17/2018 08:23:34 No significant change was found Electronically Signed On 10-04-2018 7:51:12 CDT by Bhavin Browning [email or web address] ��������������������������������������������� <ELECTRONICALLY SIGNED> ���������������������������������������� By: Bhavin Browning MD, [facility] ��������������������������������������������� 10/04/18 0751 0025 0025 Bhavin Browning MD, [facility] /EPI
[2018-10-04 11:51] VITALS: BP 139/74
--- NOTE | 2018-10-04 14:54 | NUR ---
AAO. BRISK APPETITE TODAY. DTR AND GRANDDTR AT BEDSIDE. SAT 98% ON 2L. SR PER TELE. STILL BEING DIURESED; ANGELO TO DD. FREQUENT CHECKS; WILL CONTINUE TO MONITOR.
--- NOTE | 2018-10-04 16:37 | NUR ---
met with patient and family at bedside. Patient resting rec breathing tx. Family in room report may need to call granddtr Viky with whom patient resides. 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 Therapy was just about to dc services as patient was doing well. She ambulates with a walker and able to bathroom. She can toilet herself but family present if needed. Patient lives with her dtr and granddtr. Discussed possible skilled but gdtr reports it would be difficult to check in on her as she recently had toes amputated. Family in room reports dtr of patient with diagnosis of bone cancer. request therapy evals.
[2018-10-04 17:06] VITALS: BP 106/47
[2018-10-05 04:02] LABS: INR 3.9; PROTIME 40.2 Seconds (9.3-11.4)
[2018-10-05 04:03] LABS: CALCIUM 8.1 mg/dL (8.5-10.1); CREATININE 1.6 mg/dL (0.6-1.0); POTASSIUM 3.7 mmol/L (3.5-5.1)
[2018-10-05 04:14] VITALS: BP 109/44
--- NOTE | 2018-10-05 04:20 | NUR ---
ASSESSMENT DOCUMENTED.PT BEEN RESTING IN NO ACUTE DISTRESS,FAMILY AT BEDSIDE.A/OX4.VSS.PETEY DD.ON MONITOR NSR.PT DENIES PAIN OR NAY DISTRESS AT THIS TIME.POC IS TO CONT WITH CURRENT TX WITH POSSIBLE DISCHARGE.
[2018-10-05 08:12] VITALS: BP 153/65
[2018-10-05 16:00] VITALS: BP 126/51
--- NOTE | 2018-10-05 19:36 | NUR ---
ASSESSMENT CHARTED, VSS, ALERT AND ORIENTED X 4, ANGELO CATHETER DC'D, PATIENT AMBULATES TO BATHROOM WITH WALKER AND STAND BY ASSIST. WILL CONTINUE TO MONITOR
[2018-10-05 20:05] VITALS: BP 144/101
[2018-10-05 20:10] VITALS: BP 13/56
[2018-10-06 04:35] VITALS: BP 135/61
--- NOTE | 2018-10-06 04:59 | NUR ---
ASSESSMENT DOCUMENTED.PT BEEN RESTING IN NO ACUTE DISTRESS.A/OX4.VSS.FAMILY AT BEDISDE.TYLENOL GIVEN FOR BACK PAIN.REMAINS SINUS RHYTHM ON MONITOR.UP WITH ASSIST TO BR,AMBULATED WITH A WALKER.PT DENIES ANY NEEDS AT THIS TIME.POSSIBLE DISCHARGE TODAY.
[2018-10-06 05:31] LABS: PROTIME 23.3 Seconds (9.3-11.4)
[2018-10-06 05:36] LABS: CALCIUM 8.2 mg/dL (8.5-10.1); CREATININE 1.6 mg/dL (0.6-1.0); POTASSIUM 3.7 mmol/L (3.5-5.1)
[2018-10-06 05:39] LABS: INR 2.2
[2018-10-06 07:30] VITALS: BP 142/59
[2018-10-06] MEDS ORDERED: COUMADIN 2.5MG2.5 M1 PO (09:59)
[2018-10-06] MEDS ORDERED: CARDIZEM CD120 MG PO (10:02)
[2018-10-06] MEDS ORDERED: COREG6.25 MG PO (10:02)
[2018-10-06] MEDS ORDERED: DEMADEX20 MG PO (10:13)
[2018-10-06 10:49] VITALS: BP 142/59
[2018-10-06 11:36] VITALS: BP 110/55
--- NOTE | 2018-10-06 12:01 | NUR ---
Pt dcing home today with orders for hh f/u. They would like to resume with [facility]. [facility] notified and they can accept for readmission. Pt's gdtr her and reports her uncle can pick them up at 6pm tonight after he gets off work. Nursing to call scripts to her pharmacy so they will be ready this evening as well. Pt has needed dme in place.
[2018-10-06 16:29] VITALS: BP 142/59
--- NOTE | 2018-10-06 17:32 | NUR ---
ASSESSMENT CHARTED, VSS, ALERT AND ORIENTED X 4, UP TO CHAIR, AMBULATES TO BR WITH WALKER, NO COMPLAINTS OF PAIN. PATIENT IS DISCHARGED TO HOME, DISCHARGE INSTRUCTIONS AND PRESCRIPTIONS GIVEN, PATIENT STATES UNDERSTANDING.
== END 2018-10-06 17:35 | disposition home health service (06) | DRG 291 ==
LOC: ER 23:18 → 2N 10-03 00:53 → EROBS 10-03 00:53 → ER 10-03 01:44 → 2N 10-03 01:44
PROVIDERS: Emergency Medicine; Nurse Practitioner Adult Health; Nurse Practitioner Family; ADMIT Hospitalist
DX: I13.0 Hypertensive heart and chronic kidney disease with heart failure and stage 1 through stage 4 chronic kidney disease, or unspecified chronic kidney disease (principal); I50.23 Acute on chronic systolic (congestive) heart failure; J96.01 Acute respiratory failure with hypoxia; N17.9 Acute kidney failure, unspecified; I42.9 Cardiomyopathy, unspecified; I25.10 Atherosclerotic heart disease of native coronary artery without angina pectoris; E11.22 Type 2 diabetes mellitus with diabetic chronic kidney disease; E03.9 Hypothyroidism, unspecified; E78.5 Hyperlipidemia, unspecified; I48.2 Chronic atrial fibrillation; N18.3 Chronic kidney disease, stage 3 (moderate); E55.9 Vitamin D deficiency, unspecified; R33.9 Retention of urine, unspecified; K59.00 Constipation, unspecified; Z79.82 Long term (current) use of aspirin; Z90.710 Acquired absence of both cervix and uterus; Z85.42 Personal history of malignant neoplasm of other parts of uterus; Z87.891 Personal history of nicotine dependence; I25.2 Old myocardial infarction; Z79.899 Other long term (current) drug therapy
CPT/HCPCS: 10081

== ENCOUNTER 2018-10-18 22:25 | Emergency (ER) | payer OTHER ==
[~2018-10-18] VITALS: Ht 157.5 cm; Wt 88.5 kg
[~2018-10-18 22:25] MED LIST changes: +CARDIZEM CD120 MG PO; +COUMADIN 2.5MG2.5 M1 PO; +DEMADEX20 MG PO
[2018-10-18 23:06] LABS: ABSOLUTE NEUTROPHILS 2.9 thou/uL (1.4-8.2); BASOPHILS 1.4 % (0.0-2.0); EOSINOPHILS 5.1 % (0.0-3.0); HEMATOCRIT 37.1 % (37.0-47.0); HEMOGLOBIN 11.9 gm/dL (12.0-15.0); LYMPHOCYTES 32.2 % (24.0-44.0); MCH 30.4 pg (26.0-34.0); MCHC 32.1 g/dL (28.0-37.0); MCV 94.8 fL (80.0-100.0); MONOCYTES 9.2 % (1.0-8.0); PLATELET COUNT 374 thou/uL (150-400); POLYS 52.1 % (36.0-66.0); RBC 3.91 mil/uL (4.20-5.00); RDW 14.3 % (10.5-14.5); WBC 5.6 thou/uL (4.0-11.0)
[2018-10-18 23:09] LABS: CALCIUM 8.6 mg/dL (8.5-10.1); CREATININE 1.8 mg/dL (0.6-1.0); POTASSIUM 4.6 mmol/L (3.5-5.1)
[2018-10-18 23:18] LABS: TOTAL BILIRUBIN 0.4 mg/dL (<0.1-1.0); TOTAL PROTEIN 6.9 g/dL (6.4-8.2); TROPONIN-I 0.13 ng/mL (<0.06)
[2018-10-18 23:43] LABS: INR 2.4; PROTIME 25.4 Seconds (9.3-11.4)
[2018-10-19] MEDS ORDERED: NITROGLYCERIN0.4 MG SUBLING (01:53)
[2018-10-19 02:35] VITALS: BP 153/69
--- NOTE | 2018-10-19 07:41 | EKG ---
[place] [address] [facility] [place] [address] ELECTROCARDIOGRAM REPORT Name: LENY BLANCO Room #: DEP BRENTON Gil#: [id number] ������������������ Admission: 10/18/18 ������������������ Attend Phys: Discharge: 10/19/18 ������������������ Date of : 31 Report #: [id number] ����������������������������������������������������������������� [id number] THIS REPORT FOR: //name// [facility] ED Test Date: 2018-10-18 Test Time: 22:29:53 Pat Name: LENY BLANCO Department: Room: Gender: F City Collector: MATTHIAS : 1930 Requested By: Tesfaye Allen Order Number: [id number] MD: Bhavin Browning Measurements Intervals [place] Rate: 84 P: 67 [place]: 238 QRS: 5 QRSD: 149 T: 212 QT: 444 QTc: 525 Interpretive Statements Sinus rhythm Prolonged [place] interval Left bundle branch block Compared to ECG 10/03/2018 00:25:33 Sinus tachycardia no longer present Electronically Signed On 10-19-2018 7:41:01 CDT by Bhavin Browning [email or web address] ��������������������������������������������� <ELECTRONICALLY SIGNED> ���������������������������������������� By: Bhavin Browning MD, [facility] ��������������������������������������������� 10/19/18 0741 D: [id number] 28 Bhavin Browning MD, FACC /EPI
== END 2018-10-19 02:36 | disposition home or self-care (01) ==
LOC: ER 22:25
PROVIDERS: Emergency Medicine
DX: R07.89 Other chest pain (principal); I48.0 Paroxysmal atrial fibrillation; I25.10 Atherosclerotic heart disease of native coronary artery without angina pectoris; I12.9 Hypertensive chronic kidney disease with stage 1 through stage 4 chronic kidney disease, or unspecified chronic kidney disease; E11.22 Type 2 diabetes mellitus with diabetic chronic kidney disease; N18.9 Chronic kidney disease, unspecified; Z87.891 Personal history of nicotine dependence; Z90.710 Acquired absence of both cervix and uterus; Z90.49 Acquired absence of other specified parts of digestive tract; Z95.5 Presence of coronary angioplasty implant and graft

== ENCOUNTER 2019-02-22 15:51 | Inpatient (IN) | payer OTHER ==
[~2019-02-22] VITALS: Ht 162.6 cm; Wt 101.1 kg
--- NOTE | ~2019-02-22 | P ---
[facility] [place] [place] [address] PROCEDURE REPORT Name: LENY BLANCO Room #: 351-P ADM IN M.R.#: [id number] Admission: 02/22/19 Attend Phys: David Salas MD Discharge: Date of : 31 Report #: [id number] THIS REPORT FOR: //name// CC: Dr. Nitza Stringer DATE OF SERVICE: 02/23/2019 PROCEDURE PERFORMED: Upper endoscopy. HISTORY OF PRESENT ILLNESS: The patient is an 88-year-old female who was admitted through the Emergency Room yesterday with generalized weakness, was noted to have significant anemia. Hemoglobin at her primary care physician's office was 8.4 recently. On admission, her hemoglobin was 9.2; however, today it has dropped to 7.7. The patient is on anticoagulation therapy for history of coronary artery disease, history of PE and AFib. She was switched from Coumadin to Xarelto in January. Later the Xarelto was stopped and switched to Eliquis, which she has been taking for the last week. She also is on aspirin in the past. Hemoccult positive stool here. No previous history of upper endoscopy, colonoscopy. Last colonoscopy in 2001. Plan is for EGD. DESCRIPTION OF PROCEDURE: The risks and benefits of the procedure were explained to the patient, those risks including but not limited to bleeding, perforation and the risk of sedation. She understood these risks and gave informed consent. Sedation was given using propofol per anesthesia. Next, using a standard Olympus upper endoscope, the scope was placed in the patient's mouth and advanced under direct vision through the esophagus, stomach and into the second portion of the duodenum. The larynx was normal in appearance. The esophagus was normal throughout. The GE junction was normal. Small hiatal hernia was noted upon entering the stomach. There was a mild diffuse atrophic type of gastritis noted throughout the fundus and body. I did not take biopsies as the patient had recently been on Eliquis. There were no ulcerations or erosions. There was no evidence of bleeding throughout the exam today. No AVMs were noted. The pylorus was normal and patent. The duodenal bulb, first and second portion were all normal. Again, no evidence of bleeding. At this point, the scope was then withdrawn and the procedure terminated. The patient tolerated the procedure well. IMPRESSION: 1. Mild diffuse atrophic appearing gastritis. 2. Small hiatal hernia. 3. Otherwise, normal upper endoscopy. RECOMMENDATIONS: We will discuss options with the patient. Consider [address] [address] PROCEDURE REPORT Name: LENY BLANCO Room #: 351-P [facility] IN M.R.#: [id number] Admission: 02/22/19 Attend Phys: David Salas MD Discharge: Date of : 31 Report #: [id number] colonoscopy tomorrow. Last colonoscopy was approximately 8-10 years ago. The patient is Hemoccult positive and has had a drop in her hemoglobin. Thank you for allowing me to participate in her care. By: 1250 1259 Neil Aguiar MD /nt
[~2019-02-22 15:51] MED LIST changes: +NITROGLYCERIN0.4 MG SUBLING
[2019-02-22 15:52] VITALS: BP 148/62
[2019-02-22 16:23] LABS: ABSOLUTE NEUTROPHILS 3.1 thou/uL (1.4-8.2); BASOPHILS 1.3 % (0.0-2.0); EOSINOPHILS 4.2 % (0.0-3.0); HEMATOCRIT 29.5 % (37.0-47.0); HEMOGLOBIN 9.2 gm/dL (12.0-15.0); LYMPHOCYTES 26.2 % (24.0-44.0); MCH 27.4 pg (26.0-34.0); MCHC 31.3 g/dL (28.0-37.0); MCV 87.5 fL (80.0-100.0); MONOCYTES 9.1 % (1.0-8.0); PLATELET COUNT 428 thou/uL (150-400); POLYS 59.2 % (36.0-66.0); RBC 3.37 mil/uL (4.20-5.00); RDW 16.1 % (10.5-14.5); WBC 5.3 thou/uL (4.0-11.0)
[2019-02-22 16:30] LABS: CALCIUM 9.3 mg/dL (8.5-10.1); CREATININE 2.1 mg/dL (0.6-1.0); POTASSIUM 3.4 mmol/L (3.5-5.1)
[2019-02-22 16:36] LABS: ALBUMIN 3.6 g/dL (3.4-5.0); PROTIME 10.3 Seconds (9.3-11.4); TOTAL BILIRUBIN 0.2 mg/dL (<0.1-1.0); TOTAL PROTEIN 7.3 g/dL (6.4-8.2)
[2019-02-22] MEDS ORDERED: ELIQUIS2.5 MG PO (17:13)
[2019-02-22 17:18] VITALS: BP 137/59
[2019-02-22 17:51] VITALS: BP 120/72
[2019-02-22 18:29] VITALS: BP 182/82
[2019-02-22 19:08] VITALS: BP 158/61
[2019-02-23 03:15] VITALS: BP 153/58
--- NOTE | 2019-02-23 04:11 | NUR ---
Admission history and assessments completed. Careplan initiated. No active signs of bleeding. Vital signs and rhythm stable. IVfluids and Protonix drip infusing. NPO after MN for EGD. Consent signed by patient who expressed understanding.
[2019-02-23 05:33] LABS: HEMATOCRIT 24.4 % (37.0-47.0); HEMOGLOBIN 7.7 gm/dL (12.0-15.0)
[2019-02-23 05:41] LABS: CALCIUM 8.6 mg/dL (8.5-10.1); CREATININE 1.5 mg/dL (0.6-1.0); MAGNESIUM 1.9 mg/dL (1.8-2.4); POTASSIUM 3.7 mmol/L (3.5-5.1)
[2019-02-23 07:01] VITALS: BP 165/75
--- NOTE | 2019-02-23 10:49 | NUR ---
INITIAL ASSESSMENT: Received consult. KATIE reviewed chart and spoke with nursing and attending physician. Pt was admitted from home due to GI bleed. GI consulted. Pt to have EGD today. KATIE met with pt and granddaughter, Viky, at bedside. Introduced role of SW. Pt is alert/orientated. Pt states that she has a rollator walker to assist with ambulation. No steps to enter the home and no steps inside. Pt lives at home with Viky. Pt has used [facility] in the past for HH services and would like to use them again when she goes home. Pt's PCP is Dr. Kyra Stringer at [facility]. Pt's soft work wrapper examiner is Dr. Kang. office workforce planner to send referral to [facility] for HH services. Unsure of discharge timeframe at this time. KATIE is following to assist as needed with discharge planning.
--- NOTE | 2019-02-23 11:59 | NUR ---
DISCHARGE PLANNING. ANTICIPATED DISCHARGE TO HOME. HOME HEALTH RECOMMENDED AT DISCHARGE. PAT[facility]QUEST. CALL RECEIVED FROM [facility], [facility] INTAKE. VERIFIED REFERRAL RECEIVED AND IS ACCEPTING OF PATIENT AT DISCHARGE. UNIT SW NOTIFIED. FOLLOWING.
[2019-02-23 13:52] VITALS: BP 146/56
[2019-02-23 14:02] VITALS: BP 146/56
[2019-02-23 15:01] VITALS: BP 156/73
--- NOTE | 2019-02-23 16:13 | EKG ---
[address] [place] [address] ELECTROCARDIOGRAM REPORT Name: LENY BLANCO Room #: 351-P ADM IN M.R.#: [id number] Admission: 02/22/19 Attend Phys: David Salas MD Discharge: Date of : 31 Report #: [id number] THIS REPORT FOR: //name// [facility] Test Date: 2019-02-23 Test Time: 08:51:45 Pat Name: LENY BLANCO Department: Room: 351 Gender: F Compass Operator: RT : 1930 Requested By: Mary Villa Order Number: [id number] MD: Bhavin Browning Measurements Intervals [place] Rate: 81 P: 69 [place]: 237 QRS: 23 QRSD: 150 T: 167 QT: 436 QTc: 506 Interpretive Statements Sinus rhythm Prolonged [place] interval Left bundle branch block Compared to ECG 10/18/2018 22:29:53 No significant changes Electronically Signed On 02-23-2019 16:12:50 HEAD START ASSISTANT TEACHER by Bhavin Browning [email or web address] <ELECTRONICALLY SIGNED> By: Bhavin Browning MD, [facility] 02/23/19 1612 0851 0851 Bhavin Browning MD, [facility] /EPI
[2019-02-23 19:40] VITALS: BP 156/71
--- NOTE | 2019-02-23 19:45 | NUR ---
pt has done EGD today, no avtived bleeding , pt is tolerative, pt denies pain and N/V, pt starts clear liquid diet, pt's vs are stable, pt will have colonoscopy tomorrow,
--- NOTE | 2019-02-24 02:41 | NUR ---
PATIENT IS PROGRESSING SLOWLY IN HER CARE PLAN. VITAL SIGNS STABLE WITH PATIENT HAVING NO COMPLAINTS OF NAUSEA. PATIENT DID COMPLAIN OF CHRONIC HIP PAIN WHICH WAS TREATED APPROPRIATELY THROUGH TYLENOL AND REPOSITIONING. FULLY ALERT AND ORIENTED, PATIENT IS ABLE TO CALL APPROPRIATELY FOR NEEDS AND PARTICIPATE FULLY IN CARE. NPO FROM 0000 ON IN ANTICIPATION OF TODAYS PROCEDURE. PATIENT WAS ABLE TO FINISH BOWEL PREP BEFORE 2300. UP MANY TIMES TO BEDSIDE COMMODE WITH ASSISTANCE INCIDENT FREE. NO EVIDENCE OF BLEEDING IN BOWEL MOVEMENT OR OTHERWISE. CONTINUE PLAN OF CARE.
[2019-02-24 04:20] VITALS: BP 169/72
[2019-02-24 07:42] VITALS: BP 169/77
[2019-02-24 07:47] LABS: HEMOGLOBIN 7.6 gm/dL (12.0-15.0)
[2019-02-24 08:37] LABS: CALCIUM 9.1 mg/dL (8.5-10.1); CREATININE 1.5 mg/dL (0.6-1.0); POTASSIUM 3.4 mmol/L (3.5-5.1)
[2019-02-24 15:55] VITALS: BP 142/61
--- NOTE | 2019-02-24 16:21 | NUR ---
ASSUMED CARE OF PATIENT AT 0700. VSS. RA. CALLS APPROPRIATELY. COLONOSCOPY TODAY FOUND NO ACTIVE BLEEDING. HGB REMAINS ABOVE 7 - NO TRANSFUSION NEEDED. FAMILY VISITS/STAYS WITH PATIENT. CONTINUING TO MONITOR.
[2019-02-24 20:37] VITALS: BP 150/58
[2019-02-25 04:58] VITALS: BP 123/45
[2019-02-25 05:22] LABS: HEMATOCRIT 25.6 % (37.0-47.0); HEMOGLOBIN 8.1 gm/dL (12.0-15.0); MCH 27.2 pg (26.0-34.0); MCHC 31.5 g/dL (28.0-37.0); MCV 86.3 fL (80.0-100.0); RBC 2.97 mil/uL (4.20-5.00); RDW 15.5 % (10.5-14.5); WBC 5.9 thou/uL (4.0-11.0)
[2019-02-25 05:30] LABS: CALCIUM 8.4 mg/dL (8.5-10.1); CREATININE 1.8 mg/dL (0.6-1.0); MAGNESIUM 1.6 mg/dL (1.8-2.4); POTASSIUM 3.6 mmol/L (3.5-5.1)
--- NOTE | 2019-02-25 06:19 | NUR ---
PATIENT IS ADVANCING SLOWLY IN HER CARE PLAN. VITAL SIGNS STABLE WITH PATIENT HAVING NO COMPLAINTS OF PAIN OR NAUSEA. FULLY ORIENTED, PATIENT IS ABLE TO CALL APPROPRIATELY FOR NEEDS AND PARTICIPATE IN CARE. NO SIGNS OR SYMPTOMS OF BLEEDING. PATIENT UP MULTIPLE TIMES TO BEDSIDE COMMODE WITH ASSISTANCE INCIDENT FREE. CONTINUE PLAN OF CARE.
[2019-02-25 07:33] VITALS: BP 159/55
[2019-02-25 08:40] VITALS: BP 159/55
[2019-02-25] MEDS ORDERED: LISINOPRIL10 MG PO (15:00)
[2019-02-25] MEDS ORDERED: PROTONIX40 M2 PO (15:01)
--- NOTE | 2019-02-25 16:10 | NUR ---
ASSUMED PATIENT CARE AT 0700. A/O X4. ASSISTED TO BSC. NO BLEEDING NOTED. DC TO HOME WITH HH SOON.
--- NOTE | 2019-02-26 15:09 | NUR ---
PT DISCHARGED TO HOME WITH [facility] PT DISCHARGED ON TUESDAY AND THE HH AGENCY DID NOT RECEIVED DC ORDERS. DP FAXED DC ORDERS/SUMMARY TO [facility] AND SPOKE WITH KATIANA IN INTAKE AND SHE RECEIVED DC ORDERS AND WILL NOTIFY PT TIME OF VISITS.
[2019-02-26] MEDS ORDERED: TYLENOL EXTRA500 MG PO (22:29)
[2019-02-26] MEDS ORDERED: ULTRAM 50MG TAB50 MG PO (22:30)
[2019-02-26] MEDS ORDERED: ZESTRIL2.5 MG PO (22:39)
--- NOTE | 2019-02-27 18:06 | PATH ---
[facility] [address] [place] [address] PATHOLOGY RPT PROCEDURE Name: JAYME BLANCO Room #: 351-P [facility] IN M.R.#: [id number] Admission: 02/22/19 Date of : 31 Discharge: 02/25/19 Report #: [id number] Path Case #: [id number] [facility] Accession Number: [id number] . 01 Material submitted: . colon - POLYP AT DESCENDING COLON. Modifiers: descending . 01 Clinical history: . Anemia, colon polyp . 02 Diagnosis: Polyp, descending colon, endoscopic biopsy: - Tubular adenoma. - Negative for high-grade dysplasia. (IUV:windows server specialist; 02/27/2019) [facility] 02/27/2019 1418 Local . 02 Electronically signed: . Martina Purcell MD, Pathologist NPI- [id number] . 01 Gross description: . The specimen is received in formalin, labeled "Manuelito, Jayme, polyp at descending colon", is an irregular segment of chiu soft tissue measuring 0.4 cm in greatest dimension. Entirely submitted in A1. ([facility]; 02/26/2019) [facility] 02/26/2019 1751 Local . 02 Pathologist provided ICD-10: D12.4 . 02 CPT . 532537 Specimen Comment: A courtesy copy of this report has been sent to [phone] Specimen Comment: [id number], Specimen Comment: Report sent to ,DR SUMMERS / DR SALOMON Performed at: [address], [place], [place] [id number] MD Neo Perez MD Phone: [phone] Performed at: [address] [id number] MD Martina Purcell MD Phone: [phone]
== END 2019-02-25 16:28 | disposition home health service (06) | DRG 377 ==
LOC: ER 15:51 → EROBS 17:17 → 3W 17:17
PROVIDERS: Anesthesiology; Emergency Medicine; Internal Medicine Gastroenterology; Nurse Practitioner; ADMIT Internal Medicine
PROC: 0DJ08ZZ Inspection of Upper Intestinal Tract, Via Natural or Artificial Opening Endoscopic (ICD-10-PCS; principal; 2019-02-23)
PROC: 0DBM8ZZ Excision of Descending Colon, Via Natural or Artificial Opening Endoscopic (ICD-10-PCS; 2019-02-24)
DX: K29.41 Chronic atrophic gastritis with bleeding (principal); N17.0 Acute kidney failure with tubular necrosis; I50.22 Chronic systolic (congestive) heart failure; D62 Acute posthemorrhagic anemia; I42.9 Cardiomyopathy, unspecified; I13.0 Hypertensive heart and chronic kidney disease with heart failure and stage 1 through stage 4 chronic kidney disease, or unspecified chronic kidney disease; E87.6 Hypokalemia; I25.10 Atherosclerotic heart disease of native coronary artery without angina pectoris; E53.8 Deficiency of other specified B group vitamins; E03.9 Hypothyroidism, unspecified; K44.9 Diaphragmatic hernia without obstruction or gangrene; I48.0 Paroxysmal atrial fibrillation; E11.22 Type 2 diabetes mellitus with diabetic chronic kidney disease; E78.5 Hyperlipidemia, unspecified; N18.9 Chronic kidney disease, unspecified; K63.5 Polyp of colon; Z79.4 Long term (current) use of insulin; Z90.710 Acquired absence of both cervix and uterus; Z79.01 Long term (current) use of anticoagulants; I25.2 Old myocardial infarction; Z86.711 Personal history of pulmonary embolism
CPT/HCPCS: 10080; 62110; 62900; 70005

== ENCOUNTER 2019-02-26 15:47 | Inpatient (IN) | payer OTHER ==
[~2019-02-26] VITALS: Ht 157.5 cm; Wt 88.0 kg
[~2019-02-26 15:47] MED LIST changes: +ELIQUIS2.5 MG PO; +PROTONIX40 M2 PO
[2019-02-26 15:48] VITALS: BP 107/44
[2019-02-26 18:03] LABS: ABSOLUTE NEUTROPHILS 8.8 thou/uL (1.4-8.2); BASOPHILS 0.7 % (0.0-2.0); EOSINOPHILS 1.1 % (0.0-3.0); HEMATOCRIT 27.8 % (37.0-47.0); HEMOGLOBIN 8.8 gm/dL (12.0-15.0); LYMPHOCYTES 7.8 % (24.0-44.0); MCH 27.6 pg (26.0-34.0); MCHC 31.8 g/dL (28.0-37.0); MCV 86.7 fL (80.0-100.0); MONOCYTES 6.1 % (1.0-8.0); PLATELET COUNT 367 thou/uL (150-400); POLYS 84.3 % (36.0-66.0); WBC 10.4 thou/uL (4.0-11.0)
[2019-02-26 18:11] LABS: ANION GAP 8 mmol/L (7-16); BUN 40 mg/dL (7-18); CHLORIDE 106 mmol/L (98-107); CO2 24 mmol/L (21-32); CREATININE 2.4 mg/dL (0.6-1.0); GLUCOSE 139 mg/dL (74-106); POTASSIUM 3.3 mmol/L (3.5-5.1); SODIUM 138 mmol/L (136-145)
[2019-02-26 18:23] LABS: SGOT 14 U/L (15-37); SGPT 12 U/L (30-65); TOTAL BILIRUBIN 0.3 mg/dL (<0.1-1.0); TOTAL PROTEIN 6.4 g/dL (6.4-8.2); TROPONIN-I <0.06 ng/mL (<0.06)
[2019-02-26 20:07] LABS: URINE BILIRUBIN NEGATIVE (Negative); URINE BLOOD 1+ (Negative); URINE CLARITY CLEAR; URINE COLOR YELLOW; URINE GLUCOSE-RANDOM* NEGATIVE (Negative); URINE KETONES NEGATIVE (Negative); URINE LEUKOCYTES-REFLEX NEGATIVE (Negative); URINE NITRITE-REFLEX NEGATIVE (Negative); URINE PROTEIN (DIPSTICK) NEGATIVE (Negative); URINE SPECIFIC GRAVITY <= 1.005 (1.005-1.035); URINE UROBILINOGEN 0.2 E.U./dl (0.2-1.0)
[2019-02-26 20:19] LABS: BACTERIA-REFLEX 1-9 Few /HPF (None Seen); CASTS None Seen /LPF (None Seen); CRYSTALS None Seen /LPF (None Seen); SQUAMOUS 0-3 Few /LPF (0-3); URINE RBC 0-2 Rare /HPF (0-2); URINE WBC-REFLEX None Seen /HPF (0-5)
[2019-02-26 21:11] VITALS: BP 133/57
[2019-02-26 21:15] VITALS: BP 133/57
[2019-02-26 21:25] VITALS: BP 153/71
[2019-02-26] MEDS ORDERED: TYLENOL EXTRA500 MG PO (22:29)
[2019-02-26] MEDS ORDERED: ULTRAM 50MG TAB50 MG PO (22:30)
[2019-02-26] MEDS ORDERED: ZESTRIL2.5 MG PO (22:39)
--- NOTE | 2019-02-27 02:53 | NUR ---
PATIENT AOX4 MAKE NEEDS KNOWN. PATIENT HAS HAD BRIGHT RED STOOL X1 NO ODOR. PATIENT NEEDS MINIMUM ASSISTANCE WITH ADL, BED MOBILITY, TRANSFER AND TOILETING. PATIENT C/O ABD PAIN CALLED SUPERVISOR HOME ENERGY CONSULTANT NEW ORDER OF PAIN MEDS. FAMILY AT BEDSIDE.PATIENT IN BED ASLEEP AT THIS TIME BREATHING REGULAR AND UNLABOURED.
[2019-02-27 05:25] LABS: HEMATOCRIT 25.6 % (37.0-47.0); HEMOGLOBIN 8.2 gm/dL (12.0-15.0)
[2019-02-27 05:33] LABS: CALCIUM 8.6 mg/dL (8.5-10.1); CREATININE 1.8 mg/dL (0.6-1.0); MAGNESIUM 1.7 mg/dL (1.8-2.4); POTASSIUM 3.8 mmol/L (3.5-5.1)
[2019-02-27 07:41] VITALS: BP 134/46
--- NOTE | 2019-02-27 08:04 | EKG ---
[place] [address] [facility] [place] [address] ELECTROCARDIOGRAM REPORT Name: LENY BLANCO Room #: 458-P ADM IN M.R.#: [id number] Admission: 02/26/19 Attend Phys: Ren Donovan Discharge: Date of : 31 Report #: [id number] THIS REPORT FOR: //name// [facility] ED Test Date: 2019-02-26 Test Time: 16:54:24 Pat Name: LENY BLANCO Department: Room: 458 Gender: F Kettle Loader: JUAN : 1930 Requested By: Yulissa Cho Order Number: [id number] MD: Bhavin Browning Measurements Intervals [place] Rate: 72 P: 46 [place]: 207 QRS: -8 QRSD: 150 T: 168 QT: 467 QTc: 512 Interpretive Statements Sinus rhythm with first-degree AV block Left bundle branch block Compared to ECG 02/23/2019 08:51:45 No significant change was found Electronically Signed On 02-27-2019 8:04:20 SUPERVISOR SMALL APPLIANCE ASSEMBLY by Bhavin Browning [email or web address] <ELECTRONICALLY SIGNED> By: Bhavin Browning MD, [facility] 02/27/19 0804 1654 165 Bhavin Browning MD, [facility] /EPI
[2019-02-27 13:53] VITALS: BP 134/55
--- NOTE | 2019-02-27 14:04 | NUR ---
DISCHARGE PLANNING. PAT[facility] ON February [facility]. PATIENT READMITTED TO HOSPITAL ON February. PLAN IS FOR PATIENT TO DISCHARGE TO HOME WITH [facility] ONCE MEDICALLY READY. CLINICAL UPDATES FAXED TO [facility]. CALL PLACED TO [facility] TO NOTIFY. FOLLOWING.
--- NOTE | 2019-02-27 14:06 | NUR ---
PT ADMITTED RELATED TO WEAKNESS, MINNIE, AND VOMITING. PT HAD DISCHARGED HOME 02/23/19. PT INDICATED SHE LIVES IN A HOUSE WITH HER DTR AND GDTR AND THAT THE HOUSE HAD NO STEPS TO ENTER OR INSIDE. PT INDICATED SHE HAS A 4WW TO ASSIST WITH MOBILITY. PT INIDCATED SHE HAD BEEN SET UP WITH [facility] UPON LAST DC BUT THAT SERVICES HADN'T BEEN INITIATED PRIOR TO HER RETURNING TO HOSPITAL. PT INDICATED SHE PLANS TO RETURN HOME ONCE MEDICALLY STABLE WITH [facility]. CM TO FOLLOW INDICATED WITH DC PLANNING.
[2019-02-27 19:24] VITALS: BP 127/58
--- NOTE | 2019-02-27 19:29 | NUR ---
Assumed pt care this am, pt is able to transfer from the bed to the commode with min assistance. No bloody stool was noted, informed MD with regards to the findings of the pm shift, seen by GI showed sample of the bloody stool in the commode. NO nausea, vomiting or pain has been noted for this shift. VS have been stable. Pt is scheduled for MRCP w/o contrast tomorrow, NPO post midnight tonight. POC followed, no signs or verbalizations of distress have been noted. Grand daughter at the bedside.
[2019-02-28 04:17] VITALS: BP 127/59
--- NOTE | 2019-02-28 04:33 | NUR ---
ASSUMED CARE AROUND 1900. AXOX3. NO S/S ACTIVE BLEEDING NOTED OR REPORTED AT THIS TIME. KEPT NPO AFTER MN FOR MRCP IN AM. NO S/S ACUTE DISTRESS NOTED OR REPORTED AT THIS TIME. WILL CONT TO MONITOR FOR ANY CHANGES IN CONDITION.
[2019-02-28 07:26] VITALS: BP 132/64
[2019-02-28 13:22] LABS: HEMOGLOBIN 7.7 gm/dL (12.0-15.0)
--- NOTE | 2019-02-28 13:45 | NUR ---
Assumed pt care at 7am.Pt in bed sleeping till 0830.Assessment completed.vss. Pt left for mri/mrca at 0900 and returned to room one hour later.C/o rt shoulder and hip pain.Tramadol given with am meds and pain relief noted.Pt grand dtr at bs most of the time.Late breakfast tray ordered and given to pt. No further c/o at present.Will continue to monitor.
--- NOTE | 2019-02-28 14:55 | NUR ---
PT IS TO HAVE M2 CAPSULE STUDY TOMORROW AM. IT IS ANTICIPATED THAT PT WILL RETURN HOME WITH [facility] ONCE MEDICALLY STABLE. CM TO FOLLOW INDICATED WITH DC PLANNING.
[2019-02-28 16:19] VITALS: BP 136/53
[2019-02-28 20:00] VITALS: BP 136/52
[2019-03-01 04:31] VITALS: BP 138/64
--- NOTE | 2019-03-01 04:43 | NUR ---
ASSUMED CARE AROUND 1914. NPO P MN FOR GI PROCEDURE. NO S/S ACUTE DISTRESS NOTED OR REPORTED AT THIS TIME. WILL CONT TO MONITOR FOR ANY CHANGES IN CONDITION.
[2019-03-01 07:23] VITALS: BP 151/66
--- NOTE | 2019-03-01 14:11 | NUR ---
CM FOLLOWED UP WIHT PT'S SPOUSE THIS AFTERNOON. SHE INDICATED THAT SHE IS STILL WAITING ON HER DTR TO GET INTO TOWN BUT SHE ASKED ABOUT OPTIONS FOR DISCHARGE. DISCUSSED SKILLED, YUDITH, HOSPICE HOUSE, HOSPICE FACILITY. CM TO NOTIFY PHYSICAIN THAT PT'S SPOUSE IS AROUND AND WANTS TO MEET WITH HIM.
--- NOTE | 2019-03-01 14:15 | NUR ---
CARE TEAM INDICATED THAT THEY WERE HAVING DIFFICULTY LOCATING A M2 PILL CAPSULE AND THAT PT MIGHT NOT BE ABLE TO HAVE TO STUDY DONE TODAY. CARE TEAM HAD INDICATED THAT THEY MIGHT DISCHARGE PT HOME AND HAVE THEM FOLLOW UP ON AN OUTPATIENT BASIS. SHOULD PT BE DISCHARGE HOME THIS DAY PT IS TO HAVE [facility]. ORDERS WILL NEED TO BE FAXED TO . NO OTHER CM INTERVENTION INDICATED. CM TO FOLLOW SHOULD ANY DC NEEDS [facility]ISE.
[2019-03-01 14:19] VITALS: BP 128/62; BP 151/66
--- NOTE | 2019-03-01 18:20 | NUR ---
Assumed pt care at 7am.Pt in bed resting without c/o.Pt was npo till lunch for video capsule study and mrcp. Made call to mri dept and was told that pt has no order for mrcp today.Made call to [facility] [employer] and was told that capsule wasn't deliver and pt should given lunch.Pt informed and lunch given. Therapists ambulates pt in the room. Pt up to bsc with assist to void.Pt tolerated meds and diet.Will continue to monitor.
[2019-03-01 19:53] VITALS: BP 153/62
--- NOTE | 2019-03-02 05:54 | NUR ---
ASSUMED CARE AROUND 191. AXOX4. FAMILY MEMBER AT BEDSIDE AT ALL TIMES. KEPT NPO P MN FOR GI CAPSULE STUDY AM. VSS. NO S/S ACUTE DISTRESS NOTED OR REPORTED AT THIS TIME. WILL CONT TO MONITOR FOR ANY CHANGES IN CONDITION.
[2019-03-02 07:16] VITALS: BP 168/69
[2019-03-02 13:28] VITALS: BP 158/67
--- NOTE | 2019-03-02 13:41 | NUR ---
Assumed Pt care @ 0700am. Pt resting in bed and NPO until MRCP (capsule). GI holding wanted Pt to take 2 meds prior to procedure. MRCP was successful and Pt tolerated. Instructions to allow Pt water up through 11:30 and light meal @ 13:30 BUT NO RED FOODS/FLUIDS allowed. GI will flower picker monitor @ 17:50 Aministered am meds since Pt no longer NPO. Administered Carvedilol @11:54 and BP at 168/69 but Pt BP is still elevated at 158/67 @13:28. Paged Dr. Quiles to report elevated BP.
[2019-03-02 14:17] LABS: HEMATOCRIT 27.9 % (37.0-47.0); HEMOGLOBIN 8.7 gm/dL (12.0-15.0); MCHC 31.1 g/dL (28.0-37.0); MCV 86.9 fL (80.0-100.0); RBC 3.21 mil/uL (4.20-5.00); WBC 5.3 thou/uL (4.0-11.0)
[2019-03-02 14:26] LABS: CALCIUM 9.1 mg/dL (8.5-10.1); CREATININE 1.2 mg/dL (0.6-1.0); POTASSIUM 3.9 mmol/L (3.5-5.1)
--- NOTE | 2019-03-02 15:29 | NUR ---
PT HAD M2 PILL STUDY ADMINISTERED THIS MORNING. GI INDICATED THAT THEY ARE GOING TO CHECK HEMOGLOBIN IN THE AM. SHOULD PT BE DISCHARGE HOME OVER THE WEEKEND PT IS [facility]. ORDERS WILL NEED TO BE FAXED TO . NO OTHER CM INTERVENTION INDICATED. CM TO FOLLOW SHOULD ANY DC NEEDS [facility].
[2019-03-02 16:31] VITALS: BP 165/66
[2019-03-02 20:35] VITALS: BP 151/80
--- NOTE | 2019-03-03 08:04 | NUR ---
PROGRESS VSS, PT DENIES PAIN SLEPT MOST OF SHIFT IVF'S INFUSING ORDERED CONTINUE POC.
[2019-03-03 08:05] VITALS: BP 136/54
[2019-03-03 13:40] LABS: HEMATOCRIT 27.5 % (37.0-47.0); HEMOGLOBIN 8.7 gm/dL (12.0-15.0); MCH 27.3 pg (26.0-34.0); MCHC 31.6 g/dL (28.0-37.0); MCV 86.2 fL (80.0-100.0); RBC 3.19 mil/uL (4.20-5.00); WBC 6.3 thou/uL (4.0-11.0)
--- NOTE | 2019-03-03 16:31 | NUR ---
Assumed Pt care @ 08:00am. Assessment completed, VSS, A&Ox4. Pt was well rested and in calm mood. Monitorinng ACHS as ordered. Pt has tolerated meals well and stay well hydrated. Pt stats there are no complaints of shoulder pain but now her hip pain is worse due to arthritis. Observed that the Pt protects/helps to lift her left hand/arm with her right arm as Pt states that her left shoulder hurts more on the left than the right. Dr. Quiles called with request for GI consult as he was ordering STAT lab to test hemodynamic stability as he stated Pt was up from previous day. Entered order for GI consult and community liaison officer called to GI's answering service as a STAT order. Received Broadcast Report with CBC w/o Diff results @ [id number].
[2019-03-03 20:08] VITALS: BP 154/66
[2019-03-04 08:28] VITALS: BP 154/67
--- NOTE | 2019-03-04 08:30 | NUR ---
PT LYING BED. PT HAS FAMILY AT BEDSIDE. PT DENIES ANY PAIN AT THIS TIME TO HIPS AND SHOULDERS. PT UP WITH ASSIST WHEN VOIDING. PT HAS SCD'S ON. PT TOLERATING DIET AND MEDICATION. LUNGS CLEAR.
--- NOTE | 2019-03-04 08:42 | NUR ---
progress pt up with 1 to bsc uses walker gait steady. ivf's infusing as ordered, voiding qs, stool sample obtained and sent to lab negative for blood. tolerating reg diet adequate po intake taking tramadol for arthritic pain with effect. hopes to dc home soon.
[2019-03-04 09:21] VITALS: BP 154/67
--- NOTE | 2019-03-04 15:40 | NUR ---
PT VERBALY UNDERSTOOD D/C ORDERS. PT FAMILY HERE TO TRANSPORT.
--- NOTE | 2019-03-04 15:50 | NUR ---
PT LEFT VIA W/C TO CAR.
== END 2019-03-04 15:53 | disposition home or self-care (01) | DRG 393 ==
LOC: ER 15:47 → 4W 20:21 → EROBS 20:21 → 4W 21:19
PROVIDERS: Nurse Practitioner; Nurse Practitioner Acute Care; Physician Assistant; ADMIT Internal Medicine
DX: K64.9 Unspecified hemorrhoids (principal); N17.0 Acute kidney failure with tubular necrosis; D62 Acute posthemorrhagic anemia; K92.2 Gastrointestinal hemorrhage, unspecified; I50.22 Chronic systolic (congestive) heart failure; I42.9 Cardiomyopathy, unspecified; I48.20 Chronic atrial fibrillation, unspecified; I13.0 Hypertensive heart and chronic kidney disease with heart failure and stage 1 through stage 4 chronic kidney disease, or unspecified chronic kidney disease; E11.22 Type 2 diabetes mellitus with diabetic chronic kidney disease; E78.5 Hyperlipidemia, unspecified; E87.6 Hypokalemia; N18.3 Chronic kidney disease, stage 3 (moderate); I48.0 Paroxysmal atrial fibrillation; E03.9 Hypothyroidism, unspecified; K86.9 Disease of pancreas, unspecified; I25.10 Atherosclerotic heart disease of native coronary artery without angina pectoris; Z79.01 Long term (current) use of anticoagulants; I25.2 Old myocardial infarction; Z90.710 Acquired absence of both cervix and uterus
CPT/HCPCS: 10040

== ENCOUNTER → 2019-10-23 | Outpatient (CLI) | payer OTHER | LOC: SJCVC 13:37 | DX: R94.31 Abnormal electrocardiogram [ECG] [EKG] (principal); I44.0 Atrioventricular block, first degree; I44.7 Left bundle-branch block, unspecified; I48.0 Paroxysmal atrial fibrillation; I25.10 Atherosclerotic heart disease of native coronary artery without angina pectoris; I51.81 Takotsubo syndrome; I34.0 Nonrheumatic mitral (valve) insufficiency; I36.0 Nonrheumatic tricuspid (valve) stenosis; I26.99 Other pulmonary embolism without acute cor pulmonale; Z79.899 Other long term (current) drug therapy; Z86.79 Personal history of other diseases of the circulatory system; Z87.891 Personal history of nicotine dependence ==